=== PATIENT | male | born 1960 | race Caucasian/White ===

== ENCOUNTER 2017-08-14 09:19 | Day surgery (SDC) | payer OTHER ==
[2017-08-14] MEDS ORDERED: NS 500 ML IV 500 ML IV ONE (09:38)
[2017-08-14] MEDS ORDERED: DIPRIVAN VIAL 20 ML ONE (11:32)
[2017-08-14 12:37] VITALS: BP 128/64
== END 2017-08-14 12:15 | disposition home or self-care (01) ==
LOC: SURG1 09:19
PROVIDERS: ATTEND Internal Medicine Gastroenterology
PROC: 0DJ08ZZ Inspection of Upper Intestinal Tract, Via Natural or Artificial Opening Endoscopic (ICD-10-PCS; principal; 2017-08-14 13:00)
PROC: 0DB68ZX Excision of Stomach, Via Natural or Artificial Opening Endoscopic, Diagnostic (ICD-10-PCS; principal; 2017-08-14 13:00)
PROC: 0DB88ZX Excision of Small Intestine, Via Natural or Artificial Opening Endoscopic, Diagnostic (ICD-10-PCS; principal; 2017-08-14 13:00)
DX: R11.2 Nausea with vomiting, unspecified (principal); R10.84 Generalized abdominal pain; R19.7 Diarrhea, unspecified; R10.13 Epigastric pain; K21.9 Gastro-esophageal reflux disease without esophagitis; K29.60 Other gastritis without bleeding; K20.8 Other esophagitis
CPT/HCPCS: A4217; J3490

== ENCOUNTER 2017-08-21 08:25 | Day surgery (SDC) | payer OTHER ==
[2017-08-21] MEDS ORDERED: D5 LR 1000 ML 1,000 ML IV ONE (08:30)
[2017-08-21] MEDS ORDERED: NS 500 ML IV 500 ML IV ONE (08:45)
[2017-08-21] MEDS ORDERED: DIPRIVAN VIAL 20 ML ONE ×2 (09:40→10:01)
[2017-08-21 10:48] VITALS: BP 110/62
== END 2017-08-21 10:38 | disposition home or self-care (01) ==
LOC: SURG1 08:25
PROVIDERS: ATTEND Internal Medicine Gastroenterology
PROC: 0DJD8ZZ Inspection of Lower Intestinal Tract, Via Natural or Artificial Opening Endoscopic (ICD-10-PCS; principal; 2017-08-21 10:15)
PROC: 0DBE8ZX Excision of Large Intestine, Via Natural or Artificial Opening Endoscopic, Diagnostic (ICD-10-PCS; principal; 2017-08-21 10:15)
PROC: 0DBM8ZX Excision of Descending Colon, Via Natural or Artificial Opening Endoscopic, Diagnostic (ICD-10-PCS; principal; 2017-08-21 10:15)
PROC: 0DBL8ZX Excision of Transverse Colon, Via Natural or Artificial Opening Endoscopic, Diagnostic (ICD-10-PCS; principal; 2017-08-21 10:15)
DX: Z12.11 Encounter for screening for malignant neoplasm of colon (principal); R19.4 Change in bowel habit; K63.5 Polyp of colon; K57.30 Diverticulosis of large intestine without perforation or abscess without bleeding; K64.0 First degree hemorrhoids; D12.3 Benign neoplasm of transverse colon; D12.4 Benign neoplasm of descending colon
CPT/HCPCS: A4217; J3490; J7120